=== PATIENT | male | born 1970 | race Caucasian/White ===

== ENCOUNTER → 2016-08-27 | Outpatient (CLI) | payer OTHER ==
--- NOTE | 2016-08-27 11:08 | REP ---
MAXILLOFACIAL CT WITHOUT CONTRAST: HISTORY: Chronic maxillary sinusitis. Minimal mucosal thickening is present in the maxillary sinuses. The remaining sinuses are clear. Mucosal thickening involves the ostiomeatal units. The middle and inferior nasal turbinates are partially paradoxical. There is minimal deviation of the nasal septum to the right. The nasal septum abuts the right middle nasal turbinate. The cribriform plate , medial stein of the orbits and optic canals are intact. There is aeration of the right anterior clinoid process. The carotid canals form a segment of the posterolateral stein of the sphenoid sinus. IMPRESSION: Sinus mucosal thickening as described above. Signed by Jeremy Mendoza MD 08/27/2016 11:17 A
== END ==
LOC: M RAD 08:37
PROVIDERS: ATTEND Specialist
DX: J32.0 Chronic maxillary sinusitis (principal); J34.2 Deviated nasal septum

== ENCOUNTER → 2020-12-14 | Outpatient (REF) | payer OTHER ==
[2020-12-14 13:17] LABS: APPEARANCE, URINE CLEAR (CLEAR); BACTERIA, URINE AUTO NEGATIVE (NEGATIVE); BILIRUBIN, URINE AUTO NEGATIVE (NEGATIVE); BLOOD, URINE BLOOD 2+ (NEGATIVE); COLOR, URINE YELLOW (YELLOW); GLUCOSE, URINE (UA) AUTO NEGATIVE (NEGATIVE); KETONE, URINE AUTO NEGATIVE (NEGATIVE); LEUKOCYTE ESTERASE, URINE AUTO NEGATIVE (NEGATIVE); MUCUS, URINE SMALL (NEGATIVE); NITRITE, URINE AUTO NEGATIVE (NEGATIVE); PROTEIN, URINE AUTO NEGATIVE (NEGATIVE); RBC, URINE AUTO 2 /HPF (0-3); SPECIFIC GRAVITY URINE AUTO 1.013 (1.002-1.035); SQUAMOUS EPITHELIAL CELL UR AU 0 /HPF (0-6); UROBILINOGEN, URINE AUTO 0.2 mg/dL (0.0-2.0); WBC, URINE AUTO 1 /HPF (0-3)
== END ==
LOC: M SFHCADAM 10:17
PROVIDERS: ATTEND Physician Assistant Medical
DX: N30.01 Acute cystitis with hematuria (principal)

== ENCOUNTER → 2020-12-14 | Outpatient (CLI) | payer OTHER ==
--- NOTE | 2020-12-14 10:51 | REP ---
INDICATION: LT FLANK PAIN W/ ACUTE CYSTITIS W/ HEMATURIA ? STO COMPARISON: None TECHNIQUE: Axial noncontrast images from the lung bases to the pubic symphysis with coronal and sagittal reformations. This CT examination was performed using the following dose reduction techniques: Automated exposure control, adjustment of mA and/or kv according to the patient's size, and use of iterative reconstruction technique. FINDINGS: Mucosal thickening and inflammatory changes involve the proximal sigmoid colon with stranding along the left paracolic gutter and very small foci of adjacent contained extraluminal gas is identified (series 201; images 90-120). Findings are most compatible with diverticulitis and small contained perforation. No significant ascites or drainable collection/abscess. Remainder of the small and large bowel is unremarkable. Hepatosteatosis noted. Cholelithiasis noted. Spleen, pancreas, and bilateral adrenal glands are normal. Pelvis demonstrates normal bladder and age-appropriate prostate/seminal vesicles. Small fat containing inguinal hernias are identified. No significant adenopathy. Abdominal aorta without aneurysm. Musculoskeletal structures intact and without acute osseous abnormality. Lung bases clear. IMPRESSION: Findings described above consistent with proximal sigmoid diverticulitis and small associated contained perforation. No drainable collection or abscess. No bowel obstruction. <Electronically signed by Baudilio Young > 12/14/20 [id number]
== END ==
LOC: M RAD 10:13
PROVIDERS: ATTEND Physician Assistant Medical
DX: R10.32 Left lower quadrant pain (principal); N30.01 Acute cystitis with hematuria